=== PATIENT | male | born 1995 | race Caucasian/White ===

== ENCOUNTER 2019-08-13 23:50 | Emergency (ER) | payer BC ==
--- NOTE | 2019-08-14 01:55 | EDM.PDOC ---
ED HPI GENERAL MEDICAL PROBLEM - General Chief Complaint: Respiratory Problem Stated Complaint: FLU SYMPTOMS Time Seen by Provider: 08/14/19 00:54 Source of Information: Reports: Patient History Limitations: Reports: No Limitations - History of Present Illness INITIAL COMMENTS - FREE TEXT/NARRATIVE: TRIAGE NOTE - Pt in with cough, body aches, chills, and shortness of breath on exertion that started today. Nausea and throat pain as well and headache. Did not get a flu shot. [ End ] Is complaining of flulike symptoms. Cough. Sore throat. No identified risk factors. Patient has taken Benadryl without any positive effect from that. Headache Pain Score (Numeric/FACES): 8 - Related Data Allergies Allergy/AdvReac Type Severity Reaction Status Date / Time loratadine [From Claritin] Allergy Other Verified 08/14/19 00:09 Home Meds: Home Meds Lisdexamfetamine Dimesylate [Vyvanse] 50 mg PO DAILY 08/14/19 [History] Past Medical History - Past Health History Medical/Surgical History: Denies Medical/Surgical History Social & Family History - Tobacco Use Smoking Status *Q: Never Smoker Second Hand Smoke Exposure: No - Caffeine Use Caffeine Use: Reports: Coffee - Recreational Drug Use Recreational Drug Use: No ED ROS GENERAL - Review of Systems Review Of Systems: Comprehensive ROS is negative, except as noted in HPI. ED EXAM, GENERAL - Physical Exam Exam: See Below Exam Limited By: No Limitations General Appearance: Alert, WD/WN Eye Exam: Bilateral Eye: EOMI, PERRL Ears: Normal External Exam Nose: Normal Inspection Throat/Mouth: Normal Inspection (Except for mild erythema of the posterior pharynx without exudate or asymmetry) Head: Atraumatic, Normocephalic Neck: Supple, Non-Tender Respiratory/Chest: No Respiratory Distress, Lungs Clear, Normal Breath Sounds Cardiovascular: Regular Rate, Rhythm (Mildly tachycardic on arrival) GI/Abdominal: Soft, Non-Tender Back Exam: Normal Inspection Extremities: Normal Inspection Neurological: Alert, Oriented Psychiatric: Normal Affect, Normal Mood Skin Exam: Warm, Dry Course - Vital Signs Text/Narrative:: Patient is negative for flu and strep. Chest x-ray is unremarkable. Exam is likewise unimpressive. Discussed fully with patient. He does not need an antibiotic and there is no effective treatment for what he has which is a flulike illness. Last Recorded V/S: Last Vital Signs Temp 37.4 C 08/14/19 00:06 Pulse 101 H 08/14/19 00:06 Resp 16 08/14/19 00:06 BP 122/76 08/14/19 00:06 Pulse Ox 97 08/14/19 00:06 - Orders/Labs/Meds Orders: Active Orders 24 hr Category Date Time Status CXR [Chest 1V Frontal] [CR] Stat Exams 08/14/19 00:56 Taken CULTURE STREP A CONFIRMATION [RM] Stat Lab 08/14/19 00:16 Results STREP SCRN A RAPID W CULT CONF [RM] Stat Lab 08/14/19 00:16 Results Departure - Departure Time of Disposition: 01:53 Disposition: Home, Self-Care 01 Condition: Good Clinical Impression: Flu-like symptoms - Discharge Information Referrals: PCP,Not In Area [Primary Care Provider] - Additional Instructions: To have a flulike illness. It is not the flu. Your flu test was negative. You have a mild sore throat but your strep test was negative. All your symptoms can be explained by a virus. There is no effective medication or other treatment that will help you get over this quickly. Take plenty of fluids and get rest and your immune system will take care of your illness. For any lethargy, inability to get out of bed, high fever, any concern such as that please come back to the emergency department right away. Sepsis Event Note - Evaluation Sepsis Screening Result: No Definite Risk - Focused Exam Vital Signs: Vital Signs Temp Pulse Resp BP Pulse Ox 08/14/19 00:06 37.4 C 101 H 16 122/76 97 Date Exam was Performed: 08/14/19 Time Exam was Performed: 01:49 - My Orders Last 24 Hours: My Active Orders 08/14/19 00:16 CULTURE STREP A CONFIRMATION [RM] Stat STREP SCRN A RAPID W CULT CONF [RM] Stat 08/14/19 00:56 CXR [Chest 1V Frontal] [CR] Stat - Assessment/Plan Last 24 Hours: My Active Orders 08/14/19 00:16 CULTURE STREP A CONFIRMATION [RM] Stat STREP SCRN A RAPID W CULT CONF [RM] Stat 08/14/19 00:56 CXR [Chest 1V Frontal] [CR] Stat
--- NOTE | 2019-08-15 07:12 | CR ---
Chest: Portable view of the chest was obtained. Comparison: No prior chest imaging is available. Heart size and mediastinum are normal. Lungs are clear. Bony structures are grossly intact. Impression: 1. Nothing acute is appreciated on portable chest x-ray. Diagnostic code #1 This report was dictated in [place] Standard Time
== END 2019-08-14 02:08 | disposition home or self-care (01) ==
LOC: JD.ED 23:50
DX: R05 Cough (principal); J02.9 Acute pharyngitis, unspecified; R06.02 Shortness of breath; Z88.8 Allergy status to other drugs, medicaments and biological substances; Z79.899 Other long term (current) drug therapy
CPT/HCPCS: 71045; 71045-26; 87081; 87430; 87804; 99281; 99285-25